=== PATIENT | male | born 1945 | race Caucasian/White ===

== ENCOUNTER → 2024-02-13 | Outpatient (CLI) | payer OTHER ==
[~2024-02-13] MED LIST: APIX5TAB PO; ASPI-1197 PO; BUME2TAB5 PO; BUSP15TA3 PO; CLOP75TA32 PO; FERR-72 PO; FOLIC ACID PO; IPRA0.2S54 IH; ISOS30TA92 PO; LACT10SO9 PO; LEVO100C4 PO; LOSA25TA41 PO; METO-408 PO; NITR0.4T50 SL; PANT40TA54 PO; POTA-202 PO; PRAV40TA3 PO; PREG100C56 PO; RANO10003 PO; TAMS-1 PO; TRAZ150T79 PO; VENL-63 PO
== END | disposition home or self-care (01) ==
LOC: RAH 10:21
PROVIDERS: ATTEND Internal Medicine
DX: N28.1 Cyst of kidney, acquired (principal); N32.89 Other specified disorders of bladder; R94.4 Abnormal results of kidney function studies
CPT/HCPCS: 76770

== ENCOUNTER 2024-09-28 11:34 | Emergency (ER) | payer OTHER ==
[~2024-09-28] VITALS: Ht 167.6 cm; Wt 108.9 kg
--- NOTE | 2024-09-28 11:56 | ERN ---
General Chief Complaint: Chest Pain Stated Complaint: CP Time Seen by MD: 11:35 Source: patient History of Present Illness Initial Comments Patient is a 78-year-old male coming in to be evaluated for chest pressure. Patient states he has a extensive history of cardiac issues with stent placement in the past. 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 Dr. Valdez is his oncologist. Allergies: Coded Allergies: No Known Drug Allergies (Unverified Allergy, Unknown, 11/15/14) Home Meds Reported Medications Venlafaxine HCl (Venlafaxine HCl ER) 150 Mg Cap.er.24h, 150 MG PO DAILY, CAPSULE.DR 01/13/23 Trazodone HCl (Trazodone HCl) 150 Mg Tablet, 150 MG PO HS, TAB 01/13/23 Pravastatin Sodium (Pravastatin Sodium) 40 Mg Tablet, 40 MG PO HS, TAB 01/13/23 Potassium Chloride (Potassium Chloride) 20 Meq Tab.er.prt, 20 MEQ PO DAILY 01/13/23 Pantoprazole Sodium (Pantoprazole Sodium) 40 Mg Tablet.dr, 40 MG PO DAILY, TAB 01/13/23 Nitroglycerin (Nitroglycerin) 0.4 Mg Tab.subl, 0.4 MG SL AD PRN for CHEST PAIN, TAB.SL 01/13/23 Metoprolol Succinate (Metoprolol Succinate) 25 Mg Tab.er.24h, 25 MG PO DAILY, TAB 01/13/23 Levothyroxine Sodium (Levothyroxine) 100 Mcg Capsule, 100 MCG PO DAILY, CAP 01/13/23 Lactulose (Lactulose) 20 Gm/30 Ml Solution, 20 GM PO BID PRN for CONSTIPATION, ML 01/13/23 Isosorbide Mononitrate (Isosorbide Mononitrate ER) 30 Mg Tab.er.24h, 30 MG PO DAILY, TAB 01/13/23 Ipratropium [place] (Ipratropium [place]) 0.2 Mg/1 Ml Solution, 2 PUFF IH Q8H, ML 01/13/23 [Folic Acid] No Conflict Check, 1 MG PO DAILY 01/13/23 Ferrous Sulfate (Ferrous Sulfate) 325 Mg Tablet, 325 MG PO QODAY, TAB 01/13/23 Clopidogrel Bisulfate (Clopidogrel) 75 Mg Tablet, 75 MG PO HS, TAB 6/19/23 Bumetanide (Bumetanide) 2 Mg Tablet, 2 MG PO BID, TAB 01/13/23 Aspirin (Aspirin) 81 Mg Tab.chew, 81 MG PO HS, TAB.CHEW 01/13/23 Pregabalin (Pregabalin) 100 Mg Capsule, 100 MG PO HS, CAP 01/13/23 Apixaban (Eliquis) 5 Mg Tablet, 5 MG PO BID, TAB 01/13/23 Buspirone HCl (Buspirone HCl) 15 Mg Tablet, 15 MG PO BID, TAB 03/09/20 Losartan Potassium (Losartan Potassium) 25 Mg Tablet, 25 MG PO DAILY, TAB 01/19/20 Ranolazine (Ranexa) 1,000 Mg Tab.er.12h, 1000 MG PO BID, TAB 01/19/20 Tamsulosin HCl (Flomax) 0.4 Mg Cap.er.24h, 0.4 MG PO DAILY, CAPSULE. 01/19/20 Past Medical History Past Medical History: CAD, CHF, COPD, High Cholesterol, Hypertension Past Surgical History: CABG, Other Surgical History Other: CARDIAC STENTS Results Laboratory and Microbiology Lab and Micro Result Laboratory Tests Test 09/28/24 12:01 09/28/24 13:55 09/28/24 14:41 White Blood Count 6.8 K/uL (4.8-10.8) Red Blood Count 2.53 MIL/uL (4.50-6.20) L Hemoglobin 7.6 g/dL (14.0-18.0) L Hematocrit 23.9 % (42-54) L Mean Corpuscular Volume 94.5 fL (79-99) Mean Corpuscular Hemoglobin 30.0 pg (27.0-33.0) Mean Corpuscular Hemoglobin Concent 31.8 g/dL (32.0-36.0) L Red Cell Distribution Width 14.7 % (11.0-15.5) Platelet Count 44 K/uL (130-400) L Mean Platelet Volume 11.0 fL (7.5-10.5) H Immature Granulocyte % (Auto) 1.0 % (0-1) Neutrophils (%) (Auto) 52.9 % (40.0-77.0) Lymphocytes (%) (Auto) 32.7 % (21.0-51.0) Monocytes (%) (Auto) 12.7 % (3.0-13.0) Eosinophils (%) (Auto) 0.4 % (0.0-8.0) Basophils (%) (Auto) 0.3 % (0.0-5.0) Neutrophils # (Auto) 3.6 K/uL (1.8-7.7) Lymphocytes # (Auto) 2.2 K/uL (1.0-4.8) Monocytes # (Auto) 0.9 K/uL (0.1-1.0) Eosinophils # (Auto) 0.03 K/uL (0.00-0.70) Basophils # (Auto) 0.02 K/uL (0.00-0.20) Absolute Immature Granulocyte (auto 0.07 K/uL (0-1) Segmented Neutrophils % 62 % (40-70) Band Neutrophils % 7 % (0-2) H Lymphocytes % (Manual) 25 % (22-44) Monocytes % (Manual) 5 % (2-9) Basophils % (Manual) 1 % (0-2) Nucleated Red Blood Cells 0.3 % (0.0-0.19) H Differential Comment MANUAL DIFFERENTIAL White Cell Morphology Comment CONSISTENT W/DIFF Platelet Morphology Comment MARKED DECREASE Red Blood Cell Morphology See comments Prothrombin Time 10.9 SEC (9.6-11.6) Prothromb Time International Ratio 1.03 (0.85-1.15) Activated Partial Thromboplast Time 29.9 SEC (26.3-35.5) Sodium Level 135 mmol/L (136-145) L Potassium Level 4.6 mmol/L (3.5-5.1) Chloride Level 98 mmol/L (101-111) L Carbon Dioxide Level 31 mmol/L (21-32) Blood Urea Nitrogen 27 mg/dL (7-18) H Creatinine 0.8 mg/dL (0.5-1.3) Glomerular Filtration Rate Calc 89 mL/min (>90) Random Glucose 97 mg/dL (70-105) Total Calcium 9.8 mg/dL (8.5-10.1) Magnesium Level 1.60 mg/dL (1.80-2.40) L Total Creatine Kinase 15 U/L (21-232) #L Troponin I High Sensitivity 10 ng/L (4-75) 12 ng/L (4-75) B-Type Natriuretic Peptide 136 pg/mL (0-100) H Urine Color YELLOW (YELLOW) Urine Appearance CLEAR (CLEAR) Urine pH 5.5 (5.0-8.0) Urine Specific [place] 1.016 (1.001-1.031) Urine Protein 10 mg/dL (NEGATIVE) H Urine Glucose (UA) NEGATIVE mg/dL (NEGATIVE) Urine Ketones NEGATIVE mg/dL (NEGATIVE) Urine Occult Blood NEGATIVE (NEGATIVE) Urine Nitrate NEGATIVE (NEGATIVE) Urine Bilirubin NEGATIVE mg/dL (NEGATIVE) Urine Urobilinogen 0.2 mg/dL (0.2-1.0) Urine Leukocyte Esterase NEGATIVE Tas[place]em/uL Urine RBC None /HPF (0-1) Urine WBC 0-1 /HPF (0-1) Urine Bacteria None /HPF (None Seen) EKG/XRAY/US/CT/MRI X-RAY Comment [place] [address] [id number] IMAGING REPORT Signed PATIENT: JOEL GRACE MR#: [id number] : 1945 SEX: M AGE: 78 LOCATION: [facility] ORDER 114 STATUS: [facility] REPORT#: [id number] SERVICE 1143 REASON: cp ORDERING PHYSICIAN: SOLE ANDREW MD PROCEDURE: CXR1VW - CHEST 1VW PORTABLE CHEST RADIOGRAPH INDICATION: cp COMPARISON: None FINDINGS: Median sternotomy wires are in appropriate alignment. Patient positioning is not optimal, but the radiologic examination is still believed to be of reasonable diagnostic quality. Heart is slightly enlarged. Mild calcific plaque is present along the aortic arch soliman. The pulmonary vascularity and aba appear normal. No evidence for consolidation. No pneumothorax detected. IMPRESSION: Mild cardiac enlargement without radiographic evidence for any acute cardiopulmonary process. DICTATED BY: DARCY BORJAS MD DATE: 09/28/241323 ELECTRONICALLY SIGNED BY: DARCY BORJAS MD DATE: 09/28/241327 CT Scan Comment [place] [address] [id number] IMAGING REPORT Signed PATIENT: JOEL GRACE MR#: [id number] : 1945 SEX: M AGE: 78 LOCATION: [facility] ORDER 11 STATUS: REG ER REPORT#: [id number] SERVICE 09 REASON: left flank pain ORDERING PHYSICIAN: SOLE ANDREW MD PROCEDURE: ABD PEL WO - CT ABDOMEN/PELVIS W/O CONTRAST CT ABDOMEN WITHOUT CONTRAST. CT PELVIS WITHOUT CONTRAST. INDICATION: Anterior left abdominal pain radiating to the back TECHNIQUE: Routine transaxial imaging using 5 mm slice thickness through the abdomen and pelvis without the administration of IV contrast. Thin slice reconstructions are also provided. Coronal and sagittal reformatted images acquired for interpretation. CT was performed with one or more of the following dose reduction techniques: Automated exposure control, adjustment of the mA and/or kV according to patient size, or use of iterative reconstruction technique. COMPARISON: None FINDINGS: ON NONCONTRAST IMAGING: ABDOMEN: Heart size is normal. Minimal left lung base atelectasis. No abnormal renal calcifications, hydronephrosis, perinephric inflammation, or proximal hydroureter detected. 3.9 cm simple exophytic cyst arising anterolaterally on the left of the mid to lower portion of the left kidney. 2.5 cm simple cyst at the lower pole of the right kidney. The liver is normal in size and smooth in contour without biliary duct dilation. The spleen is markedly enlarged. The gallbladder appears normal. The pancreas appears normal without pancreatic duct dilation. The adrenal glands appear normal. Enlarged left groin and bilateral pelvic sidewall lymph nodes. Several subcentimeter left periaortic greater than aortocaval lymph nodes. No evidence for intra-abdominal free air or organized fluid collection. Mild calcific plaque is noted along the abdominal aortic and iliac vessel soliman without aneurysmal dilation. PELVIS: Mild urinary bladder wall thickening is more than expected for moderate distention. No evidence for free air or organized pelvic fluid collection. Several diverticula along the distal colon. Terminal ileum appears unremarkable. The appendix appears normal. Mild thoracolumbar spondylosis. IMPRESSION: 1. Marked splenomegaly and bilateral pelvic sidewall and left groin lymphadenopathy. Subcentimeter retroperitoneal lymph nodes. These findings can be seen with underlying lymphoproliferative disease process such as lymphoma. 2. Mild urinary bladder wall thickening, more than expected for moderate distention, but no evidence for urolithiasis. Correlation with urine studies is recommended. 3. Distal colonic diverticulosis. 4. Additional minor findings and pertinent negatives as reported. DICTATED BY: DARCY BORJAS MD DATE: 09/28/24 1556 ELECTRONICALLY SIGNED BY: DARCY BORJAS MD DATE: 09/28/24 1638 MDM MDM: Differential diagnosis: History of lymphoma, abdominal discomfort, shortness of breath, Patient is an 78-year-old gentleman coming in to be evaluated for shortness of breath. Patient states he has a history of COPD and states he felt much better with the breathing treatment. Along with this patient states that he was recently diagnosed with a lymphoma Dr. Fernandez is is oncologist. Throughout ER visit patient has been stable CT did not disclose any acute findings except chronic findings such as lymphoma. Patient will be discharged in stable condition with a diagnosis of COPD exacerbation. ED Course Orders Procedure Category Date Status Time Cbc With Differential LAB 09/28/24 Complete 11:43 Prothrombin Time With LAB 09/28/24 Complete INR 11:43 B-Type Natriuretic LAB 09/28/24 Complete Peptide 11:43 Chest 1vw RAD 09/28/24 Resulted 11:43 12 Lead Ekg Tracing- EKG 09/28/24 Complete Technical 11:43 Magnesium LAB 09/28/24 Complete 11:43 Creatine Kinase, Total LAB 09/28/24 Complete 11:43 Troponin I High LAB 09/28/24 Complete Sensitivity 11:43 Urinalysis Profile LAB 09/28/24 Complete 11:43 Partial LAB 09/28/24 Complete Thromboplastin Time 11:43 Basic Metabolic Panel LAB 09/28/24 Complete 11:43 Manual Differential LAB 09/28/24 Complete 12:01 Troponin I High LAB 09/28/24 Complete Sensitivity 13:28 Acetaminophen 500mg PHA 09/28/24 Complete Tab (Tylenol 500mg T 14:00 Magnesium Chloride PHA 09/28/24 Complete (Slow-Mag) 15:30 Ipratropium/Albuterol PHA 09/28/24 Complete Neb (Duoneb) 15:30 Ct Abdomen/Pelvis W/O CT 09/28/24 Resulted Contrast 15:10 Tramadol Hcl (Ultram) PHA 09/28/24 Complete 17:00 Current Medications Medications (Trade) Dose Ordered Sig/Hawa Route PRN Reason Start Time Stop Time Status Last Admin Dose Admin Acetaminophen (TYLenol 500MG TAB) 1,000 mg ONCE ONCE PO 09/28/24 14:00 09/28/24 14:01 DC Albuterol (DUOneb) 1 UDVIAL ONCE ONCE IH 09/28/24 15:30 09/28/24 15:31 DC 09/28/24 15:55 Magnesium Chloride (Slow-Mag) 64 mg ONCE ONCE PO 09/28/24 15:30 09/28/24 15:31 DC 09/28/24 15:43 Tramadol HCl (UltRAM) 50 mg ONCE ONCE PO 09/28/24 17:00 09/28/24 17:01 DC 09/28/24 16:56 Vital Signs Date Time Temp Pulse Resp B/P (MAP) Pulse Ox O2 Delivery O2 Flow Rate FiO2 09/28/24 15:56 68 20 09/28/24 13:21 97.9 95 20 125/55 97 Room Air* 0 21 09/28/24 11:35 90 18 116/69 98 Nasal Cannula 4.0 DX & DISP Disposition: Discharge Departure Impression: Primary Impression: COPD (chronic obstructive pulmonary disease) Additional Impression: History of lymphoma Condition: Stable Scripts Budesonide/Formoterol Fumarate (Symbicort 160-4.5 Mcg Inhaler) 160 Mcg-4.5 Mcg/Actuation Hfa.aer.ad 2 PUFF IH BID for 30 Days, #10.2 GM 0 Refills Prov: SOLE ANDREW MD 09/28/24 Additional Instructions: You have been reviewed in the emergency department at [facility] after presenting with chest pain. After considering your history, your risk factors, your EKG and your blood test troponins, have been found to be at very low risk less than (1 in 100) of having a major adverse cardiac event (like heart attack) in the near future. In the " low risk" group, the risks of doing further tests and treatment as the inpatient outweighs the benefits. In many patients in the low risk group for the test of any sort or unnecessary, however he should discuss this further with his general practitioner who will understand the medical and personal backgrounds better. Because we have never declared you" no risk" we would suggest. 1 returning for medical review if you have further episodes of chest pain/arm pain or other concerning symptoms like dizziness, collapse, palpitations or shortness of breath. 2. Following up with your local doctor who will consider the need for further testing and will also ensure that any modifiable risk factors you may have for heart disease are optimally managed. Patient will be discharged in stable condition at the moment discharge patient states , no chest pain Referrals: JODI COHEN MD (PCP) Time of Disposition: 16:46 SOLE ANDREW MD Sep 28, 2024 11:56
--- NOTE | 2024-09-28 12:03 | NUR ---
1203 PT ARRIVED IN ROOM, PER [facility] EMS NO IV ESTABLISHED, PER EMS TECH PT HAD REFUSED IV AND SUGAR CHECKS.
[2024-09-28 12:23] LABS: BASOPHILS # (AUTO) 0.02 K/uL (0.00-0.20); BASOPHILS % (AUTO) 0.3 % (0.0-5.0); EOSINOPHILS # (AUTO) 0.03 K/uL (0.00-0.70); EOSINOPHILS % (AUTO) 0.4 % (0.0-8.0); HEMATOCRIT 23.9 % (42-54); IMMATURE GRANULOCYTE ABSOLUTE 0.07 K/uL (0-1); LYMPHOCYTES # (AUTO) 2.2 K/uL (1.0-4.8); LYMPHOCYTES % (AUTO) 32.7 % (21.0-51.0); MEAN CORPUSCULAR HGB CONC 31.8 g/dL (32.0-36.0); MEAN CORPUSCULAR VOLUME 94.5 fL (79-99); MONOCYTES # (AUTO) 0.9 K/uL (0.1-1.0); MONOCYTES % (AUTO) 12.7 % (3.0-13.0); NEUTROPHILS # (AUTO) 3.6 K/uL (1.8-7.7); NEUTROPHILS % (AUTO) 52.9 % (40.0-77.0); NUCLEATED RED BLOOD CELLS 0.3 % (0.0-0.19); PLATELET COUNT (AUTO) 44 K/uL (130-400); RED BLOOD CELL COUNT(AUTO) 2.53 MIL/uL (4.50-6.20); RED CELL DISTRIBUTION WIDTH 14.7 % (11.0-15.5); WHITE BLOOD COUNT (AUTO) 6.8 K/uL (4.8-10.8)
[2024-09-28 12:30] LABS: CREATININE 0.8 mg/dL (0.5-1.3); POTASSIUM 4.6 mmol/L (3.5-5.1)
[2024-09-28 12:31] LABS: INR 1.03 (0.85-1.15); PROTHROMBIN TIME 10.9 SEC (9.6-11.6)
[2024-09-28 12:33] LABS: PARTIAL THROMBOPLASTIN TIME 29.9 SEC (26.3-35.5)
[2024-09-28 12:35] LABS: MAGNESIUM 1.6 mg/dL (1.80-2.40)
--- NOTE | 2024-09-28 13:18 | EKG ---
[facility] Test Date: 2024-09-28 Test Time: 11:41:23 Pat Name: JOEL GRACE Department: [facility] Room: Gender: M Lobsterman: [id number] : 1945 Requested By: SOLE ANDREW Order Number: [id number] Reading MD: Shawn Washington Measurements Intervals Martin Rate: 90 P: 11 ME: 117 QRS: 47 QRSD: 87 T: 28 QT: 357 QTc: 437 Interpretive Statements Sinus rhythm Compared to ECG 01/14/2023 16:06:26 T-wave abnormality no longer present Prolonged QT interval no longer present Electronically Signed On 09-29-2024 12:48:22 [employer] by Shawn Washington Please click the below link to view image of tracing.
[2024-09-28 13:21] VITALS: BP 125/55; TEMP 97.8; O2SAT 97
[2024-09-28 13:24] LABS: BAND NEUTROPHILS % (MANUAL) 7 % (0-2); BASOPHILS % (MANUAL) 1 % (0-2); LYMPHOCYTES % (MANUAL) 25 % (22-44); MAN.DIFF COMMENT-IMPRESSION MANUAL DIFFERENTIAL; MONOCYTES % (MANUAL) 5 % (2-9); PLATELET MORPHOLOGY COMMENT MARKED DECREASE; SEGMENTED NEUTROPHILS % 62 % (40-70); TOTAL CELLS COUNTED 100; WBC MORPHOLOGY CONSISTENT W/DIFF
--- NOTE | 2024-09-28 13:28 | HMCIMG ---
PORTABLE CHEST RADIOGRAPH INDICATION: cp COMPARISON: None FINDINGS: Median sternotomy wires are in appropriate alignment. Patient positioning is not optimal, but the radiologic examination is still believed to be of reasonable diagnostic quality. Heart is slightly enlarged. Mild calcific plaque is present along the aortic arch soliman. The pulmonary vascularity and aba appear normal. No evidence for consolidation. No pneumothorax detected. IMPRESSION: Mild cardiac enlargement without radiographic evidence for any acute cardiopulmonary process.
--- NOTE | 2024-09-28 13:42 | NUR ---
PT REQUESTED PAIN MEDICATION, LET DR. ANDREW KNOW, PT WAS ORDERED TYLENOL, INFOMED PT I HAVE PAIN MEDICATION FOR HIM, PT BECAME UPSET AND REFUSED TYLENOL.
[2024-09-28] MEDS: acetaMINOPHEN 500 MG TABLET PO ONE (13:43)
[2024-09-28 13:47] LABS: B-TYPE NATRIURETIC PEPTIDE 136 pg/mL (0-100)
[2024-09-28 14:10] LABS: APPEARANCE,URINE CLEAR (CLEAR); BILIRUBIN,URINE NEGATIVE (NEGATIVE); COLOR,URINE YELLOW (YELLOW); GLUCOSE, URINE (UA) NEGATIVE (NEGATIVE); KETONES,URINE NEGATIVE (NEGATIVE); LEUKOCYTE ESTERASE ,URINE NEGATIVE Leu/uL (NEGATIVE); NITRATE,URINE NEGATIVE (NEGATIVE); OCCULT BLOOD,URINE NEGATIVE (NEGATIVE); PH,URINE 5.5 (5.0-8.0); PROTEIN,URINE 10 mg/dL (NEGATIVE); UROBILINOGEN,URINE 0.2 mg/dL (0.2-1.0)
[2024-09-28 14:20] LABS: ADD UA MICROSCOPIC YES
[2024-09-28 14:21] LABS: WBC,URINE 0-1 /HPF (0-1)
[2024-09-28] MEDS: MAGNESIUM CHLORIDE 64 MG TABLET.SA PO ONE (15:43)
[2024-09-28] MEDS: IpraTROPium/alBUTERol SULFATE 3 ML SOLUTION IH ONE (15:55)
[2024-09-28 15:56] VITALS: PULSE 68; RESP 20
--- NOTE | 2024-09-28 16:38 | HMCIMG ---
CT ABDOMEN WITHOUT CONTRAST. CT PELVIS WITHOUT CONTRAST. INDICATION: Anterior left abdominal pain radiating to the back TECHNIQUE: Routine transaxial imaging using 5 mm slice thickness through the abdomen and pelvis without the administration of IV contrast. Thin slice reconstructions are also provided. Coronal and sagittal reformatted images acquired for interpretation. CT was performed with one or more of the following dose reduction techniques: Automated exposure control, adjustment of the mA and/or kV according to patient size, or use of iterative reconstruction technique. COMPARISON: None FINDINGS: ON NONCONTRAST IMAGING: ABDOMEN: Heart size is normal. Minimal left lung base atelectasis. No abnormal renal calcifications, hydronephrosis, perinephric inflammation, or proximal hydroureter detected. 3.9 cm simple exophytic cyst arising anterolaterally on the left of the mid to lower portion of the left kidney. 2.5 cm simple cyst at the lower pole of the right kidney. The liver is normal in size and smooth in contour without biliary duct dilation. The spleen is markedly enlarged. The gallbladder appears normal. The pancreas appears normal without pancreatic duct dilation. The adrenal glands appear normal. Enlarged left groin and bilateral pelvic sidewall lymph nodes. Several subcentimeter left periaortic greater than aortocaval lymph nodes. No evidence for intra-abdominal free air or organized fluid collection. Mild calcific plaque is noted along the abdominal aortic and iliac vessel soliman without aneurysmal dilation. PELVIS: Mild urinary bladder wall thickening is more than expected for moderate distention. No evidence for free air or organized pelvic fluid collection. Several diverticula along the distal colon. Terminal ileum appears unremarkable. The appendix appears normal. Mild thoracolumbar spondylosis. IMPRESSION: 1. Marked splenomegaly and bilateral pelvic sidewall and left groin lymphadenopathy. Subcentimeter retroperitoneal lymph nodes. These findings can be seen with underlying lymphoproliferative disease process such as lymphoma. 2. Mild urinary bladder wall thickening, more than expected for moderate distention, but no evidence for urolithiasis. Correlation with urine studies is recommended. 3. Distal colonic diverticulosis. 4. Additional minor findings and pertinent negatives as reported.
--- NOTE | 2024-09-28 16:52 | NUR ---
PT GIVEN PETER RIOS TREATMENT BY [employer] [facility] AT BEDSIDE, STATED HELPED, PT ALSO HAD MAGNESIUM REPLACED. PT STATED HE WAS HAVING ABD PAIN, ALSO HUNDGRY REQUESTING A TRAY OF FOOD. PT WAS BROUGHT A SANDWICH, JELLOS, PT ATE. PT WAS MEDICATED FOR ABD PAIN. WILL REASSES PAIN PRIOR TO DISCHARGE.
[2024-09-28] MEDS: traMADol HCL 50 MG TABLET PO ONE (16:56)
--- NOTE | 2024-09-28 17:06 | NUR ---
PT GIVEN INSTRUCTIONS FOR HOME, PT ASKING FOR PAIN MEDICATION FOR HOME, STATED DOCTOR WAS GOING TO GIVE HIM MEDICATION FOR HOME, CLARIFIED WITH ED DOCTOR, AND STATED HE WAS ONLY GIVEN PAIN MEDICATION HERE, PT NEEDS TO SEE HIS PCP IN 2-3 DAYS FOR CHRONIC PAIN MANAGEMENT. PT BECAME VERY ANGRY YELLING, DID NOT ALLOW ME TO DRESSING IV SITE AFTER REMOVING CATHETER, PT VERY AGITATED. PT IN ROOM YELLING AT [facility] WHEN OFFERED TO BE WHEELED TO ED LOBBY FOR HIS RIDE. PT TAKEN OUT IN W/C DRIVEN HOME BY MAYKEL WELLS. PT STABLE, VITALS WNL MEDICALLY CLEARED BY DOCTOR.
[2024-09-28] MEDS ORDERED: BUDE10.2 IH (17:08)
== END 2024-09-28 17:08 | disposition home or self-care (01) ==
LOC: EDH 11:34
DX: J44.9 Chronic obstructive pulmonary disease, unspecified (principal); I25.10 Atherosclerotic heart disease of native coronary artery without angina pectoris; I11.0 Hypertensive heart disease with heart failure; I50.9 Heart failure, unspecified; E78.00 Pure hypercholesterolemia, unspecified; Z79.01 Long term (current) use of anticoagulants; Z79.02 Long term (current) use of antithrombotics/antiplatelets; Z79.82 Long term (current) use of aspirin; Z79.890 Hormone replacement therapy; Z79.899 Other long term (current) drug therapy; Z85.72 Personal history of non-Hodgkin lymphomas; Z95.1 Presence of aortocoronary bypass graft; Z95.5 Presence of coronary angioplasty implant and graft
CPT/HCPCS: 36415; 71045; 74176; 80048; 81001; 82550; 83735; 83880; 84484; 85025; 85610; 85730; 93005; 94640; 99285